=== PATIENT | female | born 1945 | race Two or more races ===

== ENCOUNTER 2017-02-12 16:29 | Emergency (ER) | payer MEDICAID, OTHER ==
[~2017-02-12] VITALS: Ht 160 cm; Wt 65.8 kg
[~2017-02-12 16:29] MED LIST: METF-312
[2017-02-12 17:00] VITALS: BP 129/79
[2017-02-12] MEDS ORDERED: ACETAMINOPHEN/CODEINE#3 (300/30mg) TAB PO ONE (18:45)
== END 2017-02-12 19:48 | disposition home or self-care (01) ==
LOC: ER 16:29
DX: S52.502A Unspecified fracture of the lower end of left radius, initial encounter for closed fracture (principal); S52.615A Nondisplaced fracture of left ulna styloid process, initial encounter for closed fracture; X58.XXXA Exposure to other specified factors, initial encounter; Y93.89 Activity, other specified; Y99.8 Other external cause status; Y92.89 Other specified places as the place of occurrence of the external cause
CPT/HCPCS: 29125; 73090